=== PATIENT | female | born 1995 | race American Indian/Alaskan Native ===

== ENCOUNTER 2017-04-23 13:12 | Emergency (ER) | payer MEDICAID, OTHER ==
--- NOTE | 2017-04-23 13:21 | EDM.PDOC ---
ED HPI GENERAL MEDICAL PROBLEM - General Chief Complaint: Bite:Animal, Insect Stated Complaint: [id number] BIT BY SOMETHING ON LEG Time Seen by Provider: 04/23/17 13:19 Source of Information: Reports: Patient, RN, RN Notes Reviewed History Limitations: Reports: No Limitations - History of Present Illness INITIAL COMMENTS - FREE TEXT/NARRATIVE: Arrives from home by POV with c/o being bit on the right upper leg by something on the 21 of April. Pt states that she was very drunk and didn't know what bit her, but it didn't itch as much as a mosquito bite. Now she has a slightly red bump with a bulls eye rash around it. She denies fevers, chills, joint swelling , or pain. Onset: Unknown/Unsure Onset Date: 04/21/17 Location: Reports: Lower Extremity, Right Quality: Reports: Other (itches) Severity: Mild Improves with: Reports: None Worsens with: Reports: None Associated Symptoms: Reports: No Other Symptoms Right Leg Pain Score (Numeric/FACES): 2 - Related Data Allergies Allergy/AdvReac Type Severity Reaction Status Date / Time bee venom protein (honey bee) Allergy Swelling Verified 04/23/17 13:29 bee Allergy Swelling Uncoded 04/23/17 13:29 Home Meds: Home Meds . 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 Musculoskeletal History: Reports: None Neurological History: Reports: Migraines Psychiatric History: Reports: Anxiety Endocrine/Metabolic History: Reports: None Hematologic History: Reports: None Immunologic History: Reports: None Oncologic (Cancer) History: Reports: None Dermatologic History: Reports: None - Infectious Disease History Infectious Disease History: Reports: Chicken Pox, Shingles - Past Surgical History HEENT Surgical History: Reports: Myringotomy w Tube(s), Tonsillectomy Social & Family History - Family History Family Medical History: Noncontributory - Tobacco Use Smoking Status *Q: Current Every Day Smoker Years of Tobacco use: 3 Packs/Tins Daily: 0.3 Used Tobacco, but Quit: No Second Hand Smoke Exposure: Yes - Alcohol Use Days Per Week of Alcohol Use: 0 - Recreational Drug Use Recreational Drug Use: No - Living Situation & Occupation Living situation: Reports: with Family Review of Systems - Review of Systems Review Of Systems: ROS reveals no pertinent complaints other than HPI. ED EXAM, GENERAL - Physical Exam Exam: See Below Exam Limited By: No Limitations General Appearance: Alert, WD/WN, No Apparent Distress Throat/Mouth: Normal Inspection Head: Atraumatic, Normocephalic Neck: Normal Inspection, Supple, Non-Tender, Full Range of Motion. No: Lymphadenopathy (L), Lymphadenopathy (R) Respiratory/Chest: No Respiratory Distress Cardiovascular: Regular Rate, Rhythm Back Exam: Normal Inspection Extremities: Normal Range of Motion, Non-Tender, No Pedal Edema, Normal Capillary Refill. No: Leg Pain, Increased Warmth Neurological: Alert, Oriented, CN II-XII Intact, Normal Cognition, Normal Gait, No Motor/Sensory Deficits Psychiatric: Normal Affect, Normal Mood Skin Exam: Warm, Dry, Intact, Other (Rt medial mid-thigh with a 5cm diameter bulls eye rash with a 1cm central round pink nodule) Course - Vital Signs Last Recorded V/S: Last Vital Signs Temp 36.6 C 04/23/17 13:17 Pulse 84 04/23/17 13:17 Resp 20 04/23/17 13:17 BP 113/63 04/23/17 13:17 Pulse Ox 100 04/23/17 13:17 Departure - Departure Time of Disposition: 14:07 Disposition: Home, Self-Care 01 Condition: Good Clinical Impression: Tick bite of right thigh with local reaction Qualifiers: Encounter type: initial encounter Qualified Code(s): S70.361A - Insect bite ( nonvenomous), right thigh, initial encounter - Discharge Information Instructions: Insect Bite, [id number], Lyme Disease Forms: ED Department Discharge Additional Instructions: Rx: Doxycycline 100mg: Take one tablet by mouth twice a day for 14 days to prevent Lyme disease. Use over the counter Benadryl 25mg: One tablet by mouth every 6 hours as needed for itching. *Do not drive for 8 hours after taking benadryl. Follow up in clinic if not improved in 7 days. If you develop fevers, joint pain or swelling, or a rash any time in the next 6 weeks follow up with your primary doctor or clinic for a Lyme Disease blood test.
== END 2017-04-23 14:21 | disposition home or self-care (01) ==
LOC: DL.ED 13:12
CPT/HCPCS: 99282

== ENCOUNTER 2017-07-31 12:55 | Emergency (ER) | payer SELFPAY ==
[2017-07-31 13:33] VITALS: BP 112/63
--- NOTE | 2017-07-31 13:44 | EDM.PDOC ---
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 Stated Complaint: 11 WKS PG, SPOTTING ALL MORNING Time Seen by Provider: 07/31/17 13:37 Source of Information: Reports: Patient, Family () History Limitations: Reports: No Limitations - History of Present Illness INITIAL COMMENTS - FREE TEXT/NARRATIVE: 22 yo [place] Female 11 weeks w/ c/o spotting w/ no abdomen pain Onset: Today Onset Date: 07/31/17 Onset Time: 09:00 Duration: Hour(s): Location: Reports: Pelvis Severity: Mild Improves with: Reports: None Worsens with: Reports: None Associated Symptoms: Reports: No Other Symptoms - Related Data Allergies Allergy/AdvReac Type Severity Reaction Status Date / Time bee venom protein (honey bee) Allergy Swelling Verified 04/23/17 13:29 bee Allergy Swelling Uncoded 04/23/17 13:29 Home Meds: Home Meds Vits #93/Iron Fum/FA [ Formula Tablet] 1 tab PO DAILY 07/31/17 [History] Past Medical History Cardiovascular History: Reports: None Respiratory History: Reports: None Gastrointestinal History: Reports: Other (See Below) Other Gastrointestinal History: umbilical hernia Genitourinary History: Reports: UTI, Recurrent 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 Musculoskeletal History: Reports: None Neurological History: Reports: Migraines Psychiatric History: Reports: Anxiety Endocrine/Metabolic History: Reports: None Hematologic History: Reports: None Immunologic History: Reports: None Oncologic (Cancer) History: Reports: None Dermatologic History: Reports: None - Infectious Disease History Infectious Disease History: Reports: Chicken Pox, Shingles - Past Surgical History HEENT Surgical History: Reports: Myringotomy w Tube(s), Tonsillectomy Social & Family History - Family History Family Medical History: Noncontributory - Tobacco Use Smoking Status *Q: Current Every Day Smoker Years of Tobacco use: 3 Packs/Tins Daily: 0.3 Used Tobacco, but Quit: No Second Hand Smoke Exposure: Yes - Caffeine Use Caffeine Use: Reports: Coffee, Soda, Tea - Alcohol Use Days Per Week of Alcohol Use: 0 - Recreational Drug Use Recreational Drug Use: No - Living Situation & Occupation Living situation: Reports: with Family ED ROS GENERAL - Review of Systems Review Of Systems: See Below Constitutional: Reports: No Symptoms HEENT: Reports: No Symptoms Respiratory: Reports: No Symptoms Cardiovascular: Reports: No Symptoms Endocrine: Reports: No Symptoms GI/Abdominal: Reports: No Symptoms : Reports: Other (dark blood on pany liner) Musculoskeletal: Reports: No Symptoms Skin: Reports: No Symptoms Neurological: Reports: No Symptoms Psychiatric: Reports: No Symptoms Hematologic/Lymphatic: Reports: No Symptoms Immunologic: Reports: No Symptoms ED EXAM - Physical Exam Exam: See Below Exam Limited By: No Limitations General Appearance: Alert, No Apparent Distress Eye Exam: Bilateral Eye: PERRL Ears: Normal External Exam Nose: Normal Inspection Throat/Mouth: Normal Inspection, Normal Lips Head: Atraumatic Neck: Normal Inspection Respiratory/Chest: No Respiratory Distress, Lungs Clear Cardiovascular: Normal Peripheral Pulses, Regular Rate, Rhythm GI/Abdominal Exam: Normal Bowel Sounds Rectal Exam: Normal Exam (Female) Exam: Normal Bimanual Exam, Normal Speculum Exam, Other (Cervical Os closed and small amount of dark blood w/ mucus plug against cervix No blood in vaginal vault and no active bleeding) Back Exam: Normal Inspection Extremities: Normal Inspection Neurological: Alert, Oriented, CN II-XII Intact Psychiatric: Normal Affect, Normal Mood Skin Exam: Dry Lymphatic: No Adenopathy ED DELIVERY OF - General Source: Reports: Patient Course - Vital Signs Last Recorded V/S: Last Vital Signs Temp 36.2 C 07/31/17 13:32 Pulse 90 07/31/17 13:32 Resp 16 07/31/17 13:32 BP 112/63 07/31/17 13:32 Pulse Ox 100 07/31/17 13:32 - Orders/Labs/Meds Orders: Active Orders 24 hr Category Date Time Status HCG QUANTITATIVE,SERUM [CHEM] Stat Lab 07/31/17 13:50 Received Labs: Laboratory Tests 07/31/17 Range/Units 13:50 Urine Color Yellow (YELLOW) Urine Appearance Slightly cloudy (CLEAR) Urine pH 7.5 (5.0-9.0) Ur Specific [place] 1.015 (1.005-1.030) Urine Protein Negative (NEGATIVE) Urine Glucose (UA) Negative (NEGATIVE) Urine Ketones Negative (NEGATIVE) Urine Occult Blood Moderate H (NEGATIVE) Urine Nitrite Negative (NEGATIVE) Urine Bilirubin Negative (NEGATIVE) Urine Urobilinogen 0.2 (0.2-1.0) mg/dL Ur Leukocyte Esterase Small H (NEGATIVE) Urine RBC 5-10 H /HPF Urine WBC 0-5 (0-5/HPF) /HPF Ur Epithelial Cells Occasional /HPF Urine Bacteria Few (0-FEW/HPF) /HPF Departure - Departure Time of Disposition: 14:48 Disposition: Home, Self-Care 01 Condition: Good Clinical Impression: Vaginitis affecting in first trimester, antepartum - Discharge Information Forms: ED Department Discharge Additional Instructions: Rest Nothing in Vagina F/U w/ PCP - My Orders Last 24 Hours: My Active Orders 07/31/17 13:50 HCG QUANTITATIVE,SERUM [CHEM] Stat - Assessment/Plan Last 24 Hours: My Active Orders 07/31/17 13:50 HCG QUANTITATIVE,SERUM [CHEM] Stat
== END 2017-07-31 15:09 | disposition home or self-care (01) ==
LOC: DL.ED 12:55
DX: O23.591 Infection of other part of genital tract in pregnancy, first trimester (principal); O99.331 Smoking (tobacco) complicating pregnancy, first trimester; F17.210 Nicotine dependence, cigarettes, uncomplicated; Z87.440 Personal history of urinary (tract) infections; Z91.030 Bee allergy status; Z3A.11 11 weeks gestation of pregnancy
CPT/HCPCS: 36415; 81001; 84702; 99284

== ENCOUNTER 2017-08-03 16:28 | Emergency (ER) | payer SELFPAY ==
[2017-08-03 17:00] VITALS: BP 119/65
--- NOTE | 2017-08-03 17:12 | EDM.PDOC ---
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 She states she was seen in ER a few days ago, as well as at [facility] clinic today. She states today she had a "Pap smear and some swabs" done. She admits to intermittent cramping after this. She states she was told she had a UTI, but has not been taking anything for it. She denies fever and chills. Patient states she is approximately 11 weeks, 5 days . 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 report Musculoskeletal History: Reports: None Neurological History: Reports: Migraines Psychiatric History: Reports: Anxiety Endocrine/Metabolic History: Reports: None Hematologic History: Reports: None Immunologic History: Reports: None Oncologic (Cancer) History: Reports: None Dermatologic History: Reports: None - Infectious Disease History Infectious Disease History: Reports: Chicken Pox, Shingles - Past Surgical History Head Surgeries/Procedures: Reports: None HEENT Surgical History: Reports: Myringotomy w Tube(s), Tonsillectomy <Soumya Richey - Last Filed: 08/03/17 19:15> Social & Family History - Family History Family Medical History: Noncontributory - Tobacco Use Smoking Status *Q: Current Every Day Smoker Years of Tobacco use: 3 Packs/Tins Daily: 0.3 Used Tobacco, but Quit: No Second Hand Smoke Exposure: Yes - Caffeine Use Caffeine Use: Reports: Coffee, Soda, Tea - Alcohol Use Days Per Week of Alcohol Use: 0 - Recreational Drug Use Recreational Drug Use: No - Living Situation & Occupation Living situation: Reports: with Family <Soumya Richey - Last Filed: 08/03/17 19:15> ED ROS GENERAL - Review of Systems Review Of Systems: ROS reveals no pertinent complaints other than HPI. <Soumya Richey - Last Filed: 08/03/17 19:15> ED EXAM - Physical Exam Exam: See Below Exam Limited By: No Limitations General Appearance: Alert, WD/WN, No Apparent Distress Eye Exam: Bilateral Eye: Normal Inspection Ears: Normal External Exam, Hearing Grossly Normal Nose: Normal Inspection Throat/Mouth: Normal Inspection, Normal Lips, Normal Teeth, Normal Gums, Normal Oropharynx, Normal Voice, No Airway Compromise Head: Atraumatic, Normocephalic Neck: Normal Inspection, Full Range of Motion Respiratory/Chest: No Respiratory Distress, Lungs Clear, Normal Breath Sounds, No Accessory Muscle Use, Chest Non-Tender Cardiovascular: Normal Peripheral Pulses, Regular Rate, Rhythm, No Edema, No Gallop, No JVD, No Murmur, No Rub GI/Abdominal Exam: Normal Bowel Sounds, Soft, Non-Tender Rectal Exam: Deferred Back Exam: Normal Inspection, Full Range of Motion Extremities: Normal Inspection, Normal Range of Motion, Non-Tender, No Pedal Edema, Normal Capillary Refill Neurological: Alert, Oriented, Normal Cognition, Normal Gait, No Motor/Sensory Deficits Psychiatric: Normal Affect, Normal Mood Skin Exam: Warm, Dry, Intact, Normal Color, No Rash Lymphatic: No Adenopathy <RicheySoumya - Last Filed: 08/03/17 19:15> - Vital Signs Last Recorded V/S: Last Vital Signs Temp 98.8 F 08/03/17 16:42 Pulse 97 08/03/17 16:42 Resp 16 08/03/17 16:42 BP 119/65 10/16/17 16:42 Pulse Ox 99 08/03/17 16:42 - Orders/Labs/Meds Orders: Active Orders 24 hr Category Date Time Status OB Ltd 1 or More Fetus [US] Urgent Exams 08/03/17 17:50 Stop Req OB Ltd 1 or More Fetus [US] Urgent Exams 08/03/17 17:50 Taken OB Transvaginal [US] Urgent Exams 08/03/17 17:50 Taken Labs: Laboratory Tests 08/03/17 08/03/17 08/03/17 Range/Units 17:02 17:02 17:02 WBC 9.7 (5.0-10.0) 10^3/uL RBC 4.06 L (4.2-5.4) 10^6/uL Hgb 13.0 D (12.0-16.0) g/dL Hct 37.2 (37.0-47.0) % MCV 91.6 (80-100) fL MCH 32.0 (27.0-34.0) pg MCHC 34.9 (33.0-35.0) g/dL Plt Count 266 (150-450) 10^3/uL Neut % (Auto) 68.1 (42.2-75.2) % Lymph % (Auto) 20.8 (20.5-50.1) % [place] % (Auto) 7.6 (2-8) % Eos % (Auto) 3.3 H (1.0-3.0) % Baso % (Auto) 0.2 (0.0-1.0) % Sodium 137 (135-145) mmol/L Potassium 3.4 L (3.6-5.0) mmol/L Chloride 104 (101-111) mmol/L Carbon Dioxide 24.0 (21.0-31.0) mmol/L Anion Gap 12.4 BUN 11 (7-18) mg/dL Creatinine 0.5 L (0.6-1.3) mg/dL Est Cr Clr Drug Dosing 166.62 mL/min Estimated GFR (MDRD) > 60 BUN/Creatinine Ratio 22.00 Glucose 101 (74-105) mg/dL Calcium 9.6 (8.4-10.2) mg/dl Total Bilirubin 0.8 (0.2-1.0) mg/dL AST 21 (10-42) IU/L ALT 15 (10-60) IU/L Alkaline Phosphatase 55 (42-121) IU/L Total Protein 7.4 (6.7-8.2) g/dl Albumin 4.7 (3.2-5.5) g/dl Globulin 2.7 Albumin/Globulin Ratio 1.74 HCG, Quant > 1371 H (0-25) mIU/ml Beta HCG, Quant 9292 mIU/ml Urine Color (YELLOW) Urine Appearance (CLEAR) Urine pH (5.0-9.0) Ur Specific [place] (1.005-1.030) Urine Protein (NEGATIVE) Urine Glucose (UA) (NEGATIVE) Urine Ketones (NEGATIVE) Urine Occult Blood (NEGATIVE) Urine Nitrite (NEGATIVE) Urine Bilirubin (NEGATIVE) Urine Urobilinogen (0.2-1.0) mg/dL Ur Leukocyte Esterase (NEGATIVE) Urine RBC /HPF Urine WBC (0-5/HPF) /HPF Ur Epithelial Cells /HPF Urine Bacteria (0-FEW/HPF) /HPF Urine Mucus /LPF Urine Opiates Screen (NEGATIVE) Ur Oxycodone Screen (NEGATIVE) Urine Methadone Screen (NEGATIVE) Ur Barbiturates Screen (NEGATIVE) U Tricyclic Antidepress (NEGATIVE) Ur Phencyclidine Scrn (NEGATIVE) Ur Amphetamine Screen (NEGATIVE) U Methamphetamines Scrn (NEGATIVE) Urine MDMA Screen (NEGATIVE) U Benzodiazepines Scrn (NEGATIVE) Urine Cocaine Screen (NEGATIVE) U Marijuana (THC) Screen (NEGATIVE) 08/03/17 08/03/17 Range/Units 17:07 17:07 WBC (5.0-10.0) 10^3/uL RBC (4.2-5.4) 10^6/uL Hgb (12.0-16.0) g/dL Hct (37.0-47.0) % MCV (80-100) fL MCH (27.0-34.0) pg MCHC (33.0-35.0) g/dL Plt Count (150-450) 10^3/uL Neut % (Auto) (42.2-75.2) % Lymph % (Auto) (20.5-50.1) % [place] % (Auto) (2-8) % Eos % (Auto) (1.0-3.0) % Baso % (Auto) (0.0-1.0) % Sodium (135-145) mmol/L Potassium (3.6-5.0) mmol/L Chloride (101-111) mmol/L Carbon Dioxide (21.0-31.0) mmol/L Anion Gap BUN (7-18) mg/dL Creatinine (0.6-1.3) mg/dL Est Cr Clr Drug Dosing mL/min Estimated GFR (MDRD) BUN/Creatinine Ratio Glucose (74-105) mg/dL Calcium (8.4-10.2) mg/dl Total Bilirubin (0.2-1.0) mg/dL AST (10-42) IU/L ALT (10-60) IU/L Alkaline Phosphatase (42-121) IU/L Total Protein (6.7-8.2) g/dl Albumin (3.2-5.5) g/dl Globulin Albumin/Globulin Ratio HCG, Quant (0-25) mIU/ml Beta HCG, Quant mIU/ml Urine Color Yellow (YELLOW) Urine Appearance Slightly cloudy (CLEAR) Urine pH 6.0 (5.0-9.0) Ur Specific [place] 1.010 (1.005-1.030) Urine Protein Negative (NEGATIVE) Urine Glucose (UA) Negative (NEGATIVE) Urine Ketones Negative (NEGATIVE) Urine Occult Blood Moderate H (NEGATIVE) Urine Nitrite Negative (NEGATIVE) Urine Bilirubin Negative (NEGATIVE) Urine Urobilinogen 0.2 (0.2-1.0) mg/dL Ur Leukocyte Esterase Trace H (NEGATIVE) Urine RBC 5-10 H /HPF Urine WBC 5-10 H (0-5/HPF) /HPF Ur Epithelial Cells Rare /HPF Urine Bacteria Few (0-FEW/HPF) /HPF Urine Mucus Rare /LPF Urine Opiates Screen Negative (NEGATIVE) Ur Oxycodone Screen Negative (NEGATIVE) Urine Methadone Screen Negative (NEGATIVE) Ur Barbiturates Screen Negative (NEGATIVE) U Tricyclic Antidepress Negative (NEGATIVE) Ur Phencyclidine Scrn Negative (NEGATIVE) Ur Amphetamine Screen Negative (NEGATIVE) U Methamphetamines Scrn Negative (NEGATIVE) Urine MDMA Screen Negative (NEGATIVE) U Benzodiazepines Scrn Negative (NEGATIVE) Urine Cocaine Screen Negative (NEGATIVE) U Marijuana (THC) Screen Negative (NEGATIVE) Departure <Soumya Richey - Last Filed: 08/03/17 19:15> - Departure Time of Disposition: 19:43 Condition: Fair <Katarina Cobian - Last Filed: 08/03/17 19:49> - Departure Disposition: Home, Self-Care 01 Clinical Impression: Threatened , Intrauterine , Absent heart tones - Discharge Information Instructions: Threatened Miscarriage Forms: ED Department Discharge Additional Instructions: rest nothing in vagina while bleeding follow up in clinic in 1-2 days for serial HCG levels ( Today Beta HCG 9292. HCG Quant 1371) Ultra sound gestational age 7 weeks 2 days)
[2017-08-03 17:35] LABS: CHLORIDE,CL 104 mmol/L (101-111); SODIUM,NA 137 mmol/L (135-145)
== END 2017-08-03 20:04 | disposition home or self-care (01) ==
LOC: DL.ED 16:28
DX: O20.0 Threatened abortion (principal); O76 Abnormality in fetal heart rate and rhythm complicating labor and delivery; O99.331 Smoking (tobacco) complicating pregnancy, first trimester; F17.200 Nicotine dependence, unspecified, uncomplicated; Z3A.11 11 weeks gestation of pregnancy; Z91.030 Bee allergy status
CPT/HCPCS: 36415; 76815; 76817; 80053; 80305; 81001; 84702; 85025; 99284

== ENCOUNTER 2020-01-30 23:40 | Emergency (ER) | payer MEDICAID ==
[2020-01-31 00:05] VITALS: BP 133/87; PULSE 84
--- NOTE | 2020-01-31 00:08 | EDM.PDOC ---
ED HPI GENERAL MEDICAL PROBLEM - General Chief Complaint: Abdominal Pain Stated Complaint: STOMACH PAIN Time Seen by Provider: 01/31/20 00:08 Source of Information: Reports: Patient, RN, RN Notes Reviewed History Limitations: Reports: No Limitations - History of Present Illness INITIAL COMMENTS - FREE TEXT/NARRATIVE: patient presents to ER with complaint of left lower quadrant pain that began abruptly about 10:30 PM tonight while having intercourse. Patient states she has had ovarian cysts in the past with the last one being about one year ago. Patient denies any recent fever, chills, nausea, vomiting, diarrhea, chest pain , shortness of breath, urinary symptoms such as frequency, urgency, burning with urination. Patient states she has had one in the past which she miscarried. She states she has no living children. 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 Patient also declines Tylenol at this time. Onset: Today, Sudden Left Lower Abdomen Pain Score (Numeric/FACES): 6 - Related Data Allergies Allergy/AdvReac Type Severity Reaction Status Date / Time bee venom protein (honey bee) Allergy Swelling Verified 04/23/17 13:29 bee Allergy Swelling Uncoded 04/23/17 13:29 Home Meds: Home Meds Vits #93/Iron Fum/FA [ Formula Tablet] 1 tab PO DAILY 07/31/17 [History] Past Medical History Cardiovascular History: Reports: None Respiratory History: Reports: None Gastrointestinal History: Reports: Other (See Below) Other Gastrointestinal History: umbilical hernia Genitourinary History: Reports: UTI, Recurrent LEARNING AND DEVELOPMENT ASSOCIATE History: Reports: None, Other LEARNING AND DEVELOPMENT ASSOCIATE History: 11 weeks per pt. report Musculoskeletal History: Reports: None Neurological History: Reports: Migraines Psychiatric History: Reports: Anxiety Endocrine/Metabolic History: Reports: None Hematologic History: Reports: None Immunologic History: Reports: None Oncologic (Cancer) History: Reports: None Dermatologic History: Reports: None - Infectious Disease History Infectious Disease History: Reports: Chicken Pox, Shingles - Past Surgical History Head Surgeries/Procedures: Reports: None HEENT Surgical History: Reports: Myringotomy w Tube(s), Tonsillectomy Social & Family History - Family History Family Medical History: Noncontributory - Tobacco Use Smoking Status *Q: Current Every Day Smoker Years of Tobacco use: 5 Packs/Tins Daily: 0.2 - Caffeine Use Caffeine Use: Reports: Soda - Alcohol Use Date of Last Drink: 12/02/19 - Recreational Drug Use Recreational Drug Use: Yes Drug Use in Last 12 Months: No - Living Situation & Occupation Living situation: Reports: with Family ED ROS GENERAL - Review of Systems Review Of Systems: Comprehensive ROS is negative, except as noted in HPI. ED EXAM, GI/ABD - Physical Exam Exam: See Below Exam Limited By: No Limitations General Appearance: Alert, WD/WN, No Apparent Distress Eyes: Bilateral: Normal Appearance, EOMI Ears: Normal External Exam, Hearing Grossly Normal Nose: Normal Inspection Throat/Mouth: Normal Inspection, Normal Voice, No Airway Compromise Head: Atraumatic, Normocephalic Neck: Normal Inspection, Supple, Non-Tender, Full Range of Motion Respiratory/Chest: No Respiratory Distress, Lungs Clear, Normal Breath Sounds, No Accessory Muscle Use, Chest Non-Tender Cardiovascular: Normal Peripheral Pulses, Regular Rate, Rhythm, No Edema, No Gallop, No JVD, No Murmur, No Rub GI/Abdominal Exam: Normal Bowel Sounds, Soft, Tender (LLQ) (Female) Exam: Deferred Rectal (Female) Exam: Deferred Back Exam: Normal Inspection, Full Range of Motion, NT Extremities: Normal Inspection, Normal Range of Motion, Non-Tender, Normal Capillary Refill, No Pedal Edema Neurological: Alert, Oriented, CN II-XII Intact, Normal Cognition, Normal Gait, Normal Reflexes, No Motor/Sensory Deficits Psychiatric: Normal Affect, Normal Mood Skin Exam: Warm, Dry, Intact, Normal Color, No Rash Lymphatic: No Adenopathy Course - Vital Signs Last Recorded V/S: Last Vital Signs Temp 97.4 F 01/30/20 23:44 Pulse 84 01/30/20 23:44 Resp 19 01/30/20 23:44 BP 133/87 01/30/20 23:44 Pulse Ox 98 01/30/20 23:44 - Orders/Labs/Meds Orders: Active Orders 24 hr Category Date Time Status CULTURE URINE [RM] Stat Lab 01/30/20 23:44 Received Nitrofurantoin [place]/Macrocryst [Macrobid] Med 01/31/20 00:41 Once 100 mg PO ONETIME ONE Labs: Laboratory Tests 01/30/20 01/30/20 01/30/20 Range/Units 23:44 23:44 23:44 WBC (5.0-10.0) 10^3/uL RBC (4.2-5.4) 10^6/uL Hgb (12.0-16.0) g/dL Hct (37.0-47.0) % MCV (80-100) fL MCH (27.0-34.0) pg MCHC (33.0-35.0) g/dL Plt Count (150-450) 10^3/uL Neut % (Auto) (42.2-75.2) % Lymph % (Auto) (20.5-50.1) % [place] % (Auto) (2-8) % Eos % (Auto) (1.0-3.0) % Baso % (Auto) (0.0-1.0) % Sodium (136-145) mmol/L Potassium (3.5-5.1) mmol/L Chloride (98-107) mmol/L Carbon Dioxide (21-32) mmol/L Anion Gap (7-13) mEq/L BUN (7-18) mg/dL Creatinine (0.55-1.02) mg/dL Est Cr Clr Drug Dosing mL/min Estimated GFR (MDRD) BUN/Creatinine Ratio (No establ ref range) Glucose (74-99) mg/dL Calcium (8.5-10.1) mg/dL Total Bilirubin (0.2-1.0) mg/dL AST (15-37) U/L ALT (14-59) U/L Alkaline Phosphatase (46-116) U/L Total Protein (6.4-8.2) g/dL Albumin (3.4-5.0) g/dL Globulin Albumin/Globulin Ratio Urine Color Yellow (YELLOW) Urine Appearance Turbid (CLEAR) Urine pH 8.5 (5.0-9.0) Ur Specific [place] 1.020 (1.005-1.030) Urine Protein Trace H (NEGATIVE) Urine Glucose (UA) Negative (NEGATIVE) Urine Ketones Negative (NEGATIVE) Urine Occult Blood Negative (NEGATIVE) Urine Nitrite Negative (NEGATIVE) Urine Bilirubin Negative (NEGATIVE) Urine Urobilinogen 2.0 H (0.2-1.0) mg/dL Ur Leukocyte Esterase Moderate H (NEGATIVE) Urine RBC 0-5 /HPF Urine WBC 10-20 H (0-5/HPF) /HPF Ur Epithelial Cells Moderate H (NOT SEEN) /HPF Amorphous Sediment Many H (NOT SEEN) /HPF Urine Bacteria Moderate H (0-FEW/HPF) /HPF Urine Mucus Few H (NOT SEEN) /LPF Urine HCG, Qual Negative Urine Opiates Screen Negative (NEGATIVE) Ur Oxycodone Screen Negative (NEGATIVE) Urine Methadone Screen Negative (NEGATIVE) Ur Barbiturates Screen Negative (NEGATIVE) U Tricyclic Antidepress Negative (NEGATIVE) Ur Phencyclidine Scrn Negative (NEGATIVE) Ur Amphetamine Screen Negative (NEGATIVE) U Methamphetamines Scrn Negative (NEGATIVE) Urine MDMA Screen Negative (NEGATIVE) U Benzodiazepines Scrn Negative (NEGATIVE) Urine Cocaine Screen Negative (NEGATIVE) U Marijuana (THC) Screen Negative (NEGATIVE) 01/30/20 01/30/20 Range/Units 23:57 23:57 WBC 11.5 H (5.0-10.0) 10^3/uL RBC 4.61 (4.2-5.4) 10^6/uL Hgb 14.4 (12.0-16.0) g/dL Hct 42.1 (37.0-47.0) % MCV 91.3 (80-100) fL MCH 31.2 (27.0-34.0) pg MCHC 34.2 (33.0-35.0) g/dL Plt Count 360 D (150-450) 10^3/uL Neut % (Auto) 55.3 (42.2-75.2) % Lymph % (Auto) 31.5 (20.5-50.1) % [place] % (Auto) 8.5 H (2-8) % Eos % (Auto) 4.4 H (1.0-3.0) % Baso % (Auto) 0.3 (0.0-1.0) % Sodium 140 (136-145) mmol/L Potassium 3.8 (3.5-5.1) mmol/L Chloride 103 (98-107) mmol/L Carbon Dioxide 29 (21-32) mmol/L Anion Gap 11.8 (7-13) mEq/L BUN 14 (7-18) mg/dL Creatinine 0.59 (0.55-1.02) mg/dL Est Cr Clr Drug Dosing 144.21 mL/min Estimated GFR (MDRD) > 60 BUN/Creatinine Ratio 23.7 (No establ ref range) Glucose 90 (74-99) mg/dL Calcium 8.9 (8.5-10.1) mg/dL Total Bilirubin 0.2 (0.2-1.0) mg/dL AST 13 L (15-37) U/L ALT 23 (14-59) U/L Alkaline Phosphatase 97 (46-116) U/L Total Protein 7.5 (6.4-8.2) g/dL Albumin 4.2 (3.4-5.0) g/dL Globulin 3.3 Albumin/Globulin Ratio 1.3 Urine Color (YELLOW) Urine Appearance (CLEAR) Urine pH (5.0-9.0) Ur Specific [place] (1.005-1.030) Urine Protein (NEGATIVE) Urine Glucose (UA) (NEGATIVE) Urine Ketones (NEGATIVE) Urine Occult Blood (NEGATIVE) Urine Nitrite (NEGATIVE) Urine Bilirubin (NEGATIVE) Urine Urobilinogen (0.2-1.0) mg/dL Ur Leukocyte Esterase (NEGATIVE) Urine RBC /HPF Urine WBC (0-5/HPF) /HPF Ur Epithelial Cells (NOT SEEN) /HPF Amorphous Sediment (NOT SEEN) /HPF Urine Bacteria (0-FEW/HPF) /HPF Urine Mucus (NOT SEEN) /LPF Urine HCG, Qual Urine Opiates Screen (NEGATIVE) Ur Oxycodone Screen (NEGATIVE) Urine Methadone Screen (NEGATIVE) Ur Barbiturates Screen (NEGATIVE) U Tricyclic Antidepress (NEGATIVE) Ur Phencyclidine Scrn (NEGATIVE) Ur Amphetamine Screen (NEGATIVE) U Methamphetamines Scrn (NEGATIVE) Urine MDMA Screen (NEGATIVE) U Benzodiazepines Scrn (NEGATIVE) Urine Cocaine Screen (NEGATIVE) U Marijuana (THC) Screen (NEGATIVE) Departure - Departure Time of Disposition: 00:42 Disposition: Home, Self-Care 01 Condition: Fair Clinical Impression: LLQ abdominal pain UTI (urinary tract infection) Qualifiers: Urinary tract infection type: acute cystitis Hematuria presence: with hematuria Qualified Code(s): N30.01 - Acute cystitis with hematuria - Discharge Information *PRESCRIPTION DRUG MONITORING PROGRAM REVIEWED*: No *COPY OF PRESCRIPTION DRUG MONITORING REPORT IN PATIENT FELIX: No Instructions: Abdominal Pain, Adult, [id number], Urinary Tract Infection, Adult, [id number] Forms: ED Department Discharge Additional Instructions: Drink plenty of water May use Tylenol as directed for pain RX: Macrobid Follow up with your primary care facility May use heat to the abdomen as tolerated Sepsis Event Note - Evaluation Sepsis Screening Result: No Definite Risk - Focused Exam Vital Signs: Vital Signs Temp Pulse Resp BP Pulse Ox 01/30/20 23:44 97.4 F 84 19 133/87 98 Date Exam was Performed: 01/31/20 Time Exam was Performed: 00:42 - My Orders Last 24 Hours: My Active Orders 01/30/20 23:44 CULTURE URINE [RM] Stat 01/31/20 00:41 Nitrofurantoin [place]/Macrocryst [Macrobid] 100 mg PO ONETIME ONE - Assessment/Plan Last 24 Hours: My Active Orders 01/30/20 23:44 CULTURE URINE [RM] Stat 01/31/20 00:41 Nitrofurantoin [place]/Macrocryst [Macrobid] 100 mg PO ONETIME ONE
[2020-01-31 00:25] LABS: ANION GAP 11.8 mEq/L (7-13); CHLORIDE,CL 103 mmol/L (98-107); SODIUM,NA 140 mmol/L (136-145)
[2020-01-31] MEDS ORDERED: Nitrofurantoin Monohydrate/Macrocrystalline 100 MG Cap PO ONE (00:41)
== END 2020-01-31 00:48 | disposition home or self-care (01) ==
LOC: DL.ED 23:40
DX: O23.11 Infections of bladder in pregnancy, first trimester (principal); O99.331 Smoking (tobacco) complicating pregnancy, first trimester; F17.210 Nicotine dependence, cigarettes, uncomplicated; Z3A.11 11 weeks gestation of pregnancy; Z91.030 Bee allergy status
CPT/HCPCS: 36415; 80053; 80305; 81001; 81025; 85025; 87086; 99284; A9270

== ENCOUNTER 2020-04-12 10:35 | Emergency (ER) | payer MEDICAID ==
[2020-04-12 10:58] VITALS: BP 117/82; PULSE 80
[2020-04-12] MEDS ORDERED: Phenazopyridine 95 MG Tab PO ONE (11:40)
[2020-04-12] MEDS ORDERED: Cephalexin 500 MG Cap PO ONE (11:46)
--- NOTE | 2020-04-12 11:55 | EDM.PDOC ---
ED HPI GENERAL MEDICAL PROBLEM - General Chief Complaint: Genitourinary Problem Stated Complaint: possible UTI reported by patient Time Seen by Provider: 04/12/20 11:00 Source of Information: Reports: Patient History Limitations: Reports: No Limitations - History of Present Illness INITIAL COMMENTS - FREE TEXT/NARRATIVE: Patient comes to the emergency department today with complaints of blood in her urine and urinary frequency. Starting this morning she rather suddenly developed urinary frequency dysuria she also noted some blood in her urine. She has had a urinary tract infection in the past it feels just like it although she is never had blood in her urine. She has no abdominal pain. No fever no chills. No nausea no vomiting. No flank pain. No other vaginal discharge pain or dyspareunia. - Related Data Allergies Allergy/AdvReac Type Severity Reaction Status Date / Time bee venom protein (honey bee) Allergy Swelling Verified 04/12/20 10:59 bee Allergy Swelling Uncoded 04/12/20 10:59 Home Meds: Home Meds . [No Known Home Meds] 04/12/20 [History] Past Medical History Cardiovascular History: Reports: None Respiratory History: Reports: None Gastrointestinal History: Reports: Other (See Below) Other Gastrointestinal History: umbilical hernia Genitourinary History: Reports: UTI, Recurrent DIPPER AND BAKER History: Reports: None, Other DIPPER AND BAKER History: 11 weeks per pt. report Musculoskeletal History: Reports: None Neurological History: Reports: Migraines Psychiatric History: Reports: Anxiety Endocrine/Metabolic History: Reports: None Hematologic History: Reports: None Immunologic History: Reports: None Oncologic (Cancer) History: Reports: None Dermatologic History: Reports: None - Infectious Disease History Infectious Disease History: Reports: Chicken Pox, Shingles - Past Surgical History Head Surgeries/Procedures: Reports: None HEENT Surgical History: Reports: Myringotomy w Tube(s), Tonsillectomy Social & Family History - Family History Family Medical History: Noncontributory - Tobacco Use Smoking Status *Q: Current Every Day Smoker Years of Tobacco use: 8 Packs/Tins Daily: 0.5 - Caffeine Use Caffeine Use: Reports: None - Recreational Drug Use Recreational Drug Use: No - Living Situation & Occupation Living situation: Reports: with Family ED ROS GENERAL - Review of Systems Review Of Systems: Comprehensive ROS is negative, except as noted in HPI. ED EXAM, RENAL/ - Physical Exam Exam: See Below Text/Narrative:: While waiting for me to come and see her she has gone to the restroom a total of 6 times. Exam Limited By: No Limitations General Appearance: Alert, WD/WN, No Apparent Distress Respiratory/Chest: No Respiratory Distress, Lungs Clear, No Accessory Muscle Use Cardiovascular: Normal Peripheral Pulses, Regular Rate, Rhythm GI/Abdominal: Normal Bowel Sounds, Soft, Non-Tender (Female) Exam: Deferred Rectal (Female) Exam: Deferred Back Exam: Normal Inspection, Full Range of Motion. No: CVA Tenderness (L), CVA Tenderness (R) Extremities: Normal Inspection, Normal Range of Motion, Non-Tender, Normal Capillary Refill Neurological: Alert, Oriented, No Motor/Sensory Deficits Psychiatric: Normal Affect, Normal Mood Skin Exam: Warm, Dry, Intact, Normal Color, No Rash Course - Vital Signs Last Recorded V/S: Last Vital Signs Temp 97.3 F 04/12/20 10:50 Pulse 80 04/12/20 10:50 Resp 16 04/12/20 10:50 BP 117/82 04/12/20 10:50 Pulse Ox 100 04/12/20 10:50 - Orders/Labs/Meds Orders: Active Orders 24 hr Category Date Time Status CULTURE URINE [RM] Routine Lab 04/12/20 11:04 Received Labs: Laboratory Tests 04/12/20 04/12/20 Range/Units 10:50 11:04 Urine Color Yellow (YELLOW) Urine Appearance Clear (CLEAR) Urine pH 7.0 (5.0-9.0) Ur Specific [place] 1.010 (1.005-1.030) Urine Protein Negative (NEGATIVE) Urine Glucose (UA) Negative (NEGATIVE) Urine Ketones Negative (NEGATIVE) Urine Occult Blood Moderate H (NEGATIVE) Urine Nitrite Negative (NEGATIVE) Urine Bilirubin Negative (NEGATIVE) Urine Urobilinogen 0.2 (0.2-1.0) mg/dL Ur Leukocyte Esterase Small H (NEGATIVE) Urine RBC 0-5 /HPF Urine WBC 5-10 H (0-5/HPF) /HPF Ur Epithelial Cells Few (NOT SEEN) /HPF Urine Bacteria Rare (0-FEW/HPF) /HPF Urine Mucus Not seen (NOT SEEN) /LPF Urine HCG, Qual Negative Meds: Medications Discontinued Medications Generic Name Dose Route Start Last Admin Trade Name Freq PRN Reason Stop Dose Admin Cephalexin 500 mg 04/12/20 11:46 04/12/20 11:49 Keflex PO 04/12/20 11:47 500 mg ONETIME ONE Administration Phenazopyridine HCl 190 mg 04/12/20 11:40 04/12/20 11:46 Urinary Pain Relief PO 04/12/20 11:41 190 mg ONETIME ONE Administration - Re-Assessments/Exams Free Text/Narrative Re-Assessment/Exam: 04/12/20 13:57 Her urine is clearly infectious. And the amount of blood in her urine is most likely the reasoning for her large amount of frequency. We will culture her urine. Start her on Pyridium and Keflex. New or worse she is to recheck she is understanding of this and her questions are answered. Departure - Departure Time of Disposition: 11:40 Disposition: Home, Self-Care 01 Clinical Impression: UTI, Urinary tract infectious disease - Discharge Information Instructions: Urinary Tract Infection, Adult, [id number], Antibiotic Medicine, Adult Forms: ED Department Discharge Additional Instructions: Drink lots of fluids the next few days. Tylenol or Ibuprofen for any pain. Pyridium, 1 tablet three times a day for the next 3 days. RX given to the patient Cephalexin 1 tablet 4 times a day for the next 5 days. RX given to the patient. Return to the ED if new or worsening symptoms. Follow up with PCP in the next 4-6 days if not improving sooner if worse. Sepsis Event Note (ED) - Evaluation Sepsis Screening Result: No Definite Risk - Focused Exam Vital Signs: Vital Signs Temp Pulse Resp BP Pulse Ox 04/12/20 10:50 97.3 F 80 16 117/82 100 - My Orders Last 24 Hours: My Active Orders 04/12/20 11:04 CULTURE URINE [RM] Routine - Assessment/Plan Last 24 Hours: My Active Orders 04/12/20 11:04 CULTURE URINE [RM] Routine Assessment:: UTI with hematuria Plan: Drink lots of fluids the next few days. Tylenol or Ibuprofen for any pain. Pyridium, 1 tablet three times a day for the next 3 days. RX given to the patient Cephalexin 1 tablet 4 times a day for the next 5 days. RX given to the patient. Return to the ED if new or worsening symptoms. Follow up with PCP in the next 4-6 days if not improving sooner if worse.
== END 2020-04-12 12:00 | disposition home or self-care (01) ==
LOC: DL.ED 10:35
DX: N39.0 Urinary tract infection, site not specified (principal); F17.210 Nicotine dependence, cigarettes, uncomplicated; Z91.030 Bee allergy status
CPT/HCPCS: 81001; 81025; 87086; 87088; 87186; 99283; A9270

== ENCOUNTER 2020-06-22 21:06 | Emergency (ER) | payer MEDICAID ==
[2020-06-22 21:43] VITALS: BP 112/58; PULSE 80
[2020-06-22] MEDS ORDERED: Promethazine 25 MG/ML SDV IM ONE (22:07)
[2020-06-22] MEDS ORDERED: Butorphanol 2 MG/ML SDV IM ONE (22:07)
--- NOTE | 2020-06-22 22:25 | EDM.PDOC ---
ED HPI GENERAL MEDICAL PROBLEM - General Chief Complaint: Headache Stated Complaint: SEVER MIGRAINE ALL DAY,DIZZY, [id number] Time Seen by Provider: 06/22/20 22:00 Source of Information: Reports: Patient History Limitations: Reports: No Limitations - History of Present Illness INITIAL COMMENTS - FREE TEXT/NARRATIVE: patient is a 25-year-old female here today for headache. The headache started at 6:30 AM today. It has ranged in pain score from 4 out of 10 to 9 out of 10 at the worst. Patient has tried regular Aleve, Aleve migraine, Tylenol, and a hot shower to help alleviate symptoms. They have not helped today, as they have in the past. Patient reports that she is also light and sound sensitive, as well as having some blurry vision and dizziness. Pain is located in her temples, jaw, front of her head, and back of her head. She drove herself to the hospital today, and believes she can get a ride home. Patient has allergy to some types of cough syrup. She smokes one pack of cigarettes per day. She does not take any prescribed medications on daily basis. 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 [No Known Home Meds] 04/12/20 [History] Past Medical History Cardiovascular History: Reports: None Respiratory History: Reports: None Gastrointestinal History: Reports: Other (See Below) Other Gastrointestinal History: umbilical hernia Genitourinary History: Reports: UTI, Recurrent ROLLER SKATER History: Reports: Other ROLLER SKATER History: 11 weeks per pt. report Musculoskeletal History: Reports: None Neurological History: Reports: Migraines Psychiatric History: Reports: Anxiety Endocrine/Metabolic History: Reports: None Hematologic History: Reports: None Immunologic History: Reports: None Oncologic (Cancer) History: Reports: None Dermatologic History: Reports: None - Infectious Disease History Infectious Disease History: Reports: Chicken Pox, Shingles - Past Surgical History Head Surgeries/Procedures: Reports: None HEENT Surgical History: Reports: Myringotomy w Tube(s), Tonsillectomy Social & Family History - Family History Family Medical History: Noncontributory - Tobacco Use Smoking Status *Q: Current Every Day Smoker Years of Tobacco use: 7 Packs/Tins Daily: 0.4 Second Hand Smoke Exposure: Yes - Caffeine Use Caffeine Use: Reports: None - Recreational Drug Use Recreational Drug Use: No - Living Situation & Occupation Living situation: Reports: with Family ED ROS GENERAL - Review of Systems Review Of Systems: Comprehensive ROS is negative, except as noted in HPI. - Physical Exam Exam: See Below Exam Limited By: No Limitations General Appearance: Alert, No Apparent Distress Ears: Normal External Exam Nose: Normal Inspection Throat/Mouth: Normal Inspection Head Exam: Atraumatic Neck: Normal Inspection Respiratory/Chest: No Respiratory Distress, Lungs Clear, Normal Breath Sounds Cardiovascular: Normal Peripheral Pulses, Regular Rate, Rhythm GI/Abdominal: Soft (Female) Exam: Deferred Rectal (Female) Exam: Deferred Neuro Exam (Abbreviated): Alert, Oriented Back Exam: Normal Inspection Extremities: Normal Inspection, Normal Range of Motion Psychiatric: Normal Affect Skin Exam: Warm, Dry Course - Vital Signs Text/Narrative:: Patient was given an IM dose of Stadol as well as an IM dose of Phenergan. She was discharged home, with her sister driving. Last Recorded V/S: Last Vital Signs Temp 97.8 F 06/22/20 21:38 Pulse 80 06/22/20 21:38 Resp 18 06/22/20 21:38 BP 112/58 L 06/22/20 21:38 Pulse Ox 99 06/22/20 21:38 - Orders/Labs/Meds Meds: Medications Discontinued Medications Generic Name Dose Route Start Last Admin Trade Name Freq PRN Reason Stop Dose Admin Butorphanol Tartrate 2 mg 06/22/20 22:07 06/22/20 22:18 Stadol IM 06/22/20 22:08 2 mg ONETIME ONE Administration Promethazine HCl 25 mg 06/22/20 22:07 06/22/20 22:17 Phenergan IM 06/22/20 22:08 25 mg ONETIME ONE Administration - Re-Assessments/Exams Free Text/Narrative Re-Assessment/Exam: Patient was given Stadol 2 mg and Phenergan 25 mg IM with relief. Departure - Departure Time of Disposition: 22:24 Disposition: Home, Self-Care 01 Clinical Impression: Migraine - Discharge Information Instructions: Migraine Headache, [id number] Forms: ED Department Discharge Additional Instructions: Push fluids and rest follow up with PCP. Sepsis Event Note (ED) - Evaluation Sepsis Screening Result: No Definite Risk - Focused Exam Vital Signs: Vital Signs Temp Pulse Resp BP Pulse Ox 06/22/20 21:38 97.8 F 80 18 112/58 L 99
== END 2020-06-22 22:39 | disposition home or self-care (01) ==
LOC: DL.ED 21:06
DX: O99.351 Diseases of the nervous system complicating pregnancy, first trimester (principal); G43.909 Migraine, unspecified, not intractable, without status migrainosus; O99.331 Smoking (tobacco) complicating pregnancy, first trimester; F17.210 Nicotine dependence, cigarettes, uncomplicated; Z91.030 Bee allergy status; Z3A.11 11 weeks gestation of pregnancy
CPT/HCPCS: 96372; 99283; J0595; J2550

== ENCOUNTER 2020-08-19 15:59 | Emergency (ER) | payer MEDICAID, OTHER ==
[2020-08-19 16:12] VITALS: BP 128/61; PULSE 94
--- NOTE | 2020-08-19 16:14 | EDM.PDOC ---
ED HPI GENERAL MEDICAL PROBLEM - General Chief Complaint: Abdominal Pain Stated Complaint: 7 WEEKS PREG, LEFT SIDE HURTS Time Seen by Provider: 08/19/20 16:14 Source of Information: Reports: Patient, Old Records, RN, RN Notes Reviewed History Limitations: Reports: No Limitations - History of Present Illness INITIAL COMMENTS - FREE TEXT/NARRATIVE: G2, P0, sAb1, eAb0, L0 at 7 weeks gestation by dates presents to ER from home by POV with c/o LLQ abdominal pain that began around 1300HRS today. Pt states that she ate something for lunch at [employer] restaurant that did not agree with her stomach so she went out to her car but vomited once she got in the car. She twisted rapidly to stand up from vomiting and felt onset of a sudden sharp pain in LLQ. Pt rates the pain 04/27. EDC 04/03/21 Onset: Today, Sudden Duration: Constant Location: Reports: Abdomen Quality: Reports: Ache Severity: Severe Improves with: Reports: None Worsens with: Reports: None Associated Symptoms: Reports: No Other Symptoms Left Lower Abdomen Pain Score (Numeric/FACES): 3 - Related Data Allergies Allergy/AdvReac Type Severity Reaction Status Date / Time bee venom protein (honey bee) Allergy Swelling Verified 08/19/20 16:08 bee Allergy Swelling Uncoded 08/19/20 16:08 Home Meds: Home Meds Acetaminophen [Tylenol Extra Strength] 500 mg PO DAILY 08/19/20 [History] Vit No.78/Iron/Fa [Prenatabs FA] 1 tab PO DAILY 08/19/20 [History] Past Medical History Cardiovascular History: Reports: None Respiratory History: Reports: None Gastrointestinal History: Reports: Other (See Below) Other Gastrointestinal History: umbilical hernia Genitourinary History: Reports: UTI, Recurrent ENGINEER CONDUCTOR History: Reports: , Spontaneous : 2 Para: 0 Other ENGINEER CONDUCTOR History: 11 weeks per pt. report Musculoskeletal History: Reports: None Neurological History: Reports: Migraines Psychiatric History: Reports: Anxiety Endocrine/Metabolic History: Reports: None Hematologic History: Reports: None Immunologic History: Reports: None Oncologic (Cancer) History: Reports: None Dermatologic History: Reports: None - Infectious Disease History Infectious Disease History: Reports: Chicken Pox, Shingles - Past Surgical History Head Surgeries/Procedures: Reports: None HEENT Surgical History: Reports: Myringotomy w Tube(s), Tonsillectomy Social & Family History - Family History Family Medical History: Noncontributory - Caffeine Use Caffeine Use: Reports: None - Living Situation & Occupation Living situation: Reports: with Family ED ROS GENERAL - Review of Systems Review Of Systems: Comprehensive ROS is negative, except as noted in HPI. ED EXAM - Physical Exam Exam: See Below Exam Limited By: No Limitations General Appearance: Alert, WD/WN, No Apparent Distress Throat/Mouth: Normal Inspection, Normal Voice Head: Atraumatic, Normocephalic Neck: Normal Inspection Respiratory/Chest: No Respiratory Distress, Lungs Clear, Normal Breath Sounds, No Accessory Muscle Use, Chest Non-Tender Cardiovascular: Normal Peripheral Pulses, Regular Rate, Rhythm, No Edema, No Gallop, No JVD, No Murmur, No Rub GI/Abdominal Exam: Normal Bowel Sounds, Soft, No Organomegaly, No Distention, Tender (LLQ). No: Guarding, Rigid, Rebound Rectal Exam: Deferred (Female) Exam: Deferred for Placenta Previa Back Exam: Normal Inspection, Full Range of Motion. No: CVA Tenderness (L), CVA Tenderness (R), Vertebral Tenderness Extremities: Normal Inspection, Normal Range of Motion, Non-Tender, Normal Capillary Refill, No Pedal Edema Neurological: Alert, Oriented, CN II-XII Intact, Normal Cognition, Normal Gait, No Motor/Sensory Deficits Psychiatric: Normal Affect, Normal Mood Skin Exam: Warm, Dry, Intact, Normal Color, No Rash Course - Vital Signs Last Recorded V/S: Last Vital Signs Temp 98.2 F 08/19/20 16:09 Pulse 94 08/19/20 16:09 Resp 18 08/19/20 16:09 BP 128/61 08/19/20 16:09 Pulse Ox 99 08/19/20 16:09 - Orders/Labs/Meds Orders: Active Orders 24 hr Category Date Time Status OB Transvaginal [US] Stat Exams 08/19/20 17:13 Ordered ABO/RH TYPE [BBK] Stat Lab 08/19/20 18:25 Ordered CULTURE URINE [RM] Stat Lab 08/19/20 16:05 Received Labs: Laboratory Tests 08/19/20 08/19/20 08/19/20 Range/Units 16:05 16:31 16:31 WBC 10.5 H (5.0-10.0) 10^3/uL RBC 4.24 (4.2-5.4) 10^6/uL Hgb 13.3 (12.0-16.0) g/dL Hct 38.9 (37.0-47.0) % MCV 91.7 (80-100) fL MCH 31.4 (27.0-34.0) pg MCHC 34.2 (33.0-35.0) g/dL Plt Count 338 (150-450) 10^3/uL Neut % (Auto) 62.9 (42.2-75.2) % Lymph % (Auto) 24.6 (20.5-50.1) % [place] % (Auto) 7.9 (2-8) % Eos % (Auto) 4.5 H (1.0-3.0) % Baso % (Auto) 0.1 (0.0-1.0) % Sodium 139 (136-145) mmol/L Potassium 3.8 (3.5-5.1) mmol/L Chloride 102 (98-107) mmol/L Carbon Dioxide 29 (21-32) mmol/L Anion Gap 11.8 (7-13) mEq/L BUN 8 (7-18) mg/dL Creatinine 0.61 (0.55-1.02) mg/dL Est Cr Clr Drug Dosing 133.13 mL/min Estimated GFR (MDRD) > 60 BUN/Creatinine Ratio 13.1 (No establ ref range) Glucose 91 (74-99) mg/dL Calcium 9.0 (8.5-10.1) mg/dL Total Bilirubin 0.3 (0.2-1.0) mg/dL AST 18 (15-37) U/L ALT 28 (14-59) U/L Alkaline Phosphatase 79 (46-116) U/L Total Protein 7.1 (6.4-8.2) g/dL Albumin 3.8 (3.4-5.0) g/dL Globulin 3.3 Albumin/Globulin Ratio 1.2 Amylase 47 (25-115) U/L Lipase 162 (73-393) U/L HCG, Quant (0-6) mIU/mL Urine Color Yellow (YELLOW) Urine Appearance Clear (CLEAR) Urine pH 7.5 (5.0-9.0) Ur Specific [place] 1.015 (1.005-1.030) Urine Protein Negative (NEGATIVE) Urine Glucose (UA) Negative (NEGATIVE) Urine Ketones Negative (NEGATIVE) Urine Occult Blood Negative (NEGATIVE) Urine Nitrite Negative (NEGATIVE) Urine Bilirubin Negative (NEGATIVE) Urine Urobilinogen 0.2 (0.2-1.0) mg/dL Ur Leukocyte Esterase Small H (NEGATIVE) Urine RBC 0-5 /HPF Urine WBC 5-10 H (0-5/HPF) /HPF Ur Epithelial Cells Few (NOT SEEN) /HPF Urine Bacteria Few (0-FEW/HPF) /HPF 08/19/20 Range/Units 16:31 WBC (5.0-10.0) 10^3/uL RBC (4.2-5.4) 10^6/uL Hgb (12.0-16.0) g/dL Hct (37.0-47.0) % MCV (80-100) fL MCH (27.0-34.0) pg MCHC (33.0-35.0) g/dL Plt Count (150-450) 10^3/uL Neut % (Auto) (42.2-75.2) % Lymph % (Auto) (20.5-50.1) % [place] % (Auto) (2-8) % Eos % (Auto) (1.0-3.0) % Baso % (Auto) (0.0-1.0) % Sodium (136-145) mmol/L Potassium (3.5-5.1) mmol/L Chloride (98-107) mmol/L Carbon Dioxide (21-32) mmol/L Anion Gap (7-13) mEq/L BUN (7-18) mg/dL Creatinine (0.55-1.02) mg/dL Est Cr Clr Drug Dosing mL/min Estimated GFR (MDRD) BUN/Creatinine Ratio (No establ ref range) Glucose (74-99) mg/dL Calcium (8.5-10.1) mg/dL Total Bilirubin (0.2-1.0) mg/dL AST (15-37) U/L ALT (14-59) U/L Alkaline Phosphatase (46-116) U/L Total Protein (6.4-8.2) g/dL Albumin (3.4-5.0) g/dL Globulin Albumin/Globulin Ratio Amylase (25-115) U/L Lipase (73-393) U/L HCG, Quant [id number] H (0-6) mIU/mL Urine Color (YELLOW) Urine Appearance (CLEAR) Urine pH (5.0-9.0) Ur Specific [place] (1.005-1.030) Urine Protein (NEGATIVE) Urine Glucose (UA) (NEGATIVE) Urine Ketones (NEGATIVE) Urine Occult Blood (NEGATIVE) Urine Nitrite (NEGATIVE) Urine Bilirubin (NEGATIVE) Urine Urobilinogen (0.2-1.0) mg/dL Ur Leukocyte Esterase (NEGATIVE) Urine RBC /HPF Urine WBC (0-5/HPF) /HPF Ur Epithelial Cells (NOT SEEN) /HPF Urine Bacteria (0-FEW/HPF) /HPF - Radiology Interpretation Free Text/Narrative:: OB US: single IUP, no ectopic, see Rad. report. Departure - Departure Time of Disposition: 18:26 Disposition: Home, Self-Care 01 Condition: Good Clinical Impression: Abdominal pain during in first trimester - Discharge Information *PRESCRIPTION DRUG MONITORING PROGRAM REVIEWED*: Not Applicable *COPY OF PRESCRIPTION DRUG MONITORING REPORT IN PATIENT FELIX: Not Applicable Instructions: Abdominal Pain During , Wsta-cj-Ncis Forms: ED Department Discharge Additional Instructions: Rx: Reglan 10mg Follow up in clinic and for OB ultrasound as planned. Sepsis Event Note (ED) - Evaluation Sepsis Screening Result: No Definite Risk - Focused Exam Vital Signs: Vital Signs Temp Pulse Resp BP Pulse Ox 08/19/20 16:09 98.2 F 94 18 128/61 99 - My Orders Last 24 Hours: My Active Orders 08/19/20 16:05 CULTURE URINE [RM] Stat 08/19/20 17:13 OB Transvaginal [US] Stat 08/19/20 18:25 ABO/RH TYPE [BBK] Stat - Assessment/Plan Last 24 Hours: My Active Orders 08/19/20 16:05 CULTURE URINE [RM] Stat 08/19/20 17:13 OB Transvaginal [US] Stat 08/19/20 18:25 ABO/RH TYPE [BBK] Stat
[2020-08-19 16:59] LABS: ANION GAP 11.8 mEq/L (7-13); CHLORIDE,CL 102 mmol/L (98-107); SODIUM,NA 139 mmol/L (136-145)
--- NOTE | 2020-08-19 18:51 | US ---
PROCEDURE INFORMATION: Exam: US , Transvaginal Exam date and time: 08/19/2020 6:01 PM Age: 25 years old Clinical indication: complicated by abdominal or pelvic pain; Left lower quadrant; First trimester; Gestational age or lmp: 6 wks, 0 days; ; Patient HX: PT unsure of lmp; Additional info: Llq abdominal/pelvic pain @ 7wks gest, R/O ectopic TECHNIQUE: Imaging protocol: Real-time transvaginal obstetrical ultrasound of the maternal pelvis and a first trimester with image documentation. Transvaginal imaging was used for better evaluation of the fetus, adnexa, and/or cervix. COMPARISON: No relevant prior studies available. FINDINGS: Gestation: A gestational sac and yolk sac are identified within the uterus. Mean gestational sac diameter estimates the gestational age to be 7 weeks 4 days. cardiac activity cannot be confirmed, however, this could be due to early gestation. IMPRESSION: 1. Intrauterine is identified with gestational sac estimated gestational age to be 7 weeks 4 days. Small pole is identified, however, no cardiac activity confirmed. Correlation with serial beta HCG level suggested. Follow-up imaging may be useful as clinically indicated.
== END 2020-08-19 18:35 | disposition home or self-care (01) ==
LOC: DL.ED 15:59
DX: O26.891 Other specified pregnancy related conditions, first trimester (principal); R10.32 Left lower quadrant pain; Z91.030 Bee allergy status; Z3A.01 Less than 8 weeks gestation of pregnancy
CPT/HCPCS: 36415; 76817; 80053; 81001; 82150; 83690; 84702; 85025; 86900; 86901; 87086; 99284-25

== ENCOUNTER 2020-09-08 20:14 | Emergency (ER) | payer MEDICAID ==
[2020-09-08] MEDS ORDERED: Ibuprofen 400 MG Tab PO ONE (20:37)
[2020-09-08 20:38] VITALS: BP 120/63; PULSE 93
--- NOTE | 2020-09-08 20:41 | EDM.PDOC ---
ED HPI GENERAL MEDICAL PROBLEM - General Chief Complaint: Headache Stated Complaint: MIGRAINE/9 WKS Time Seen by Provider: 09/08/20 20:33 Source of Information: Reports: Patient History Limitations: Reports: No Limitations - History of Present Illness INITIAL COMMENTS - FREE TEXT/NARRATIVE: h/o migraines been taking tylenol all day and not helping. also on suboxone. be en nauseous but not taken her reglan yet. discussed with pt re and pain meds for migraines - Related Data Allergies Allergy/AdvReac Type Severity Reaction Status Date / Time bee venom protein (honey bee) Allergy Swelling Verified 09/08/20 20:24 bee Allergy Swelling Uncoded 09/08/20 20:24 Home Meds: Home Meds Acetaminophen [Tylenol Extra Strength] 500 mg PO DAILY 08/19/20 [History] Vit No.78/Iron/Fa [Prenatabs FA] 1 tab PO DAILY 08/19/20 [History] Buprenorphine HCl 2 mg PO DAILY 09/08/20 [History] Metoclopramide HCl 10 mg PO ASDIRECTED PRN 09/08/20 [History] Past Medical History Cardiovascular History: Reports: None Respiratory History: Reports: None Gastrointestinal History: Reports: Other (See Below) Other Gastrointestinal History: umbilical hernia Genitourinary History: Reports: UTI, Recurrent INSULATION PROFESSIONAL History: Reports: , Spontaneous Other INSULATION PROFESSIONAL History: 11 weeks per pt. report Musculoskeletal History: Reports: None Neurological History: Reports: Migraines Psychiatric History: Reports: Anxiety Endocrine/Metabolic History: Reports: None Hematologic History: Reports: None Immunologic History: Reports: None Oncologic (Cancer) History: Reports: None Dermatologic History: Reports: None - Infectious Disease History Infectious Disease History: Reports: Chicken Pox, Shingles - Past Surgical History Head Surgeries/Procedures: Reports: None HEENT Surgical History: Reports: Myringotomy w Tube(s), Tonsillectomy Social & Family History - Family History Family Medical History: No Pertinent Family History - Caffeine Use Caffeine Use: Reports: None - Living Situation & Occupation Living situation: Reports: with Family ED ROS GENERAL - Review of Systems Review Of Systems: Comprehensive ROS is negative, except as noted in HPI. - Physical Exam Exam: See Below Exam Limited By: No Limitations General Appearance: Alert, WD/WN, Mild Distress, Other (discomfort) Eye Exam: Bilateral Eye: PERRL (pupils ER @ 4mm) Ears: Hearing Grossly Normal Throat/Mouth: Normal Voice, No Airway Compromise Head Exam: Atraumatic Neck: Non-Tender, Full Range of Motion Respiratory/Chest: No Respiratory Distress Cardiovascular: Regular Rate, Rhythm GI/Abdominal: Soft, Non-Tender (Female) Exam: Deferred Rectal (Female) Exam: Deferred Neuro Exam (Abbreviated): Alert, Oriented, Normal Cognition, Normal Gait, No Motor/Sensory Deficits Psychiatric: Tearful Skin Exam: Warm, Dry, Ecchymosis Course - Orders/Labs/Meds Orders: Active Orders 24 hr Category Date Time Status Ibuprofen [Motrin] Med 09/08/20 20:37 Once 400 mg PO ONETIME ONE Departure - Departure Time of Disposition: 20:40 Disposition: Home, Self-Care 01 Condition: Good Clinical Impression: Migraine - Discharge Information Additional Instructions: 1) rest as much as possible 2) avoid loud noise and bright lights 3) follow up at clinic Thursday about meds for migraine during . - My Orders Last 24 Hours: My Active Orders 09/08/20 20:37 Ibuprofen [Motrin] 400 mg PO ONETIME ONE - Assessment/Plan Last 24 Hours: My Active Orders 09/08/20 20:37 Ibuprofen [Motrin] 400 mg PO ONETIME ONE
== END 2020-09-08 20:55 | disposition home or self-care (01) ==
LOC: DL.ED 20:14
DX: O99.351 Diseases of the nervous system complicating pregnancy, first trimester (principal); G43.909 Migraine, unspecified, not intractable, without status migrainosus; Z91.030 Bee allergy status; Z3A.09 9 weeks gestation of pregnancy
CPT/HCPCS: 99283; A9270

== ENCOUNTER 2020-09-21 13:14 | Emergency (ER) | payer MEDICAID ==
[2020-09-21 13:11] VITALS: BP 123/77; PULSE 93
[2020-09-21] MEDS ORDERED: traMADol 50 MG Tab PO ONE (13:25)
[2020-09-21] MEDS ORDERED: fentaNYL 100 MCG/2 ML SDV IVPUSH ONE ×2 (14:00→14:39)
[2020-09-21] MEDS ORDERED: Sodium Chloride 0.9% 1,000 ML IV SCH (14:30)
--- NOTE | 2020-09-21 14:33 | US ---
EXAMINATION: OB 1st Tri Sgl 1st Gest SEX: Female AGE: 25 years CLINICAL HISTORY: 25-year-old "15 week 1 day" gravid female with vaginal bleeding, labor and "miscarriage". Retained products of conception? Interpretation (emergency, limited, transabdominal sonogram): 1. Midline uterus with central endometrial echoes typical of blood and/or residual placenta. 2. No parts identified.
[2020-09-21] MEDS ORDERED: diphenhydrAMINE 50 MG/ML SDV IVPUSH ONE (14:39)
--- NOTE | 2020-09-21 14:40 | EDM.PDOC ---
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 pt was seen @ [facility] 09/19, US revealed no heart tones, inevitable . pt reports cramping began 09/19, vaginal bleeding with large clots began this am. pt reports pain 07/28. pt with hx of opiate addiction, currently on suboxone, which she took the last dose around noon today. reports taking ibuprofen @ 11am today with no relief. reports saturating 3 pads every 2 hours. EMS reports large clots being passed en route. pt unsure of blood type or Rh factor. , reports spontaneous 2-3 years ago which passed on its own without medical attention required. (Chelo Atkins) - Related Data Allergies Allergy/AdvReac Type Severity Reaction Status Date / Time bee venom protein (honey bee) Allergy Swelling Verified 09/08/20 20:24 bee Allergy Swelling Uncoded 09/08/20 20:24 Home Meds: Home Meds Acetaminophen [Tylenol Extra Strength] 500 mg PO DAILY 08/19/20 [History] Vit No.78/Iron/Fa [Prenatabs FA] 1 tab PO DAILY 08/19/20 [History] Buprenorphine HCl 2 mg PO DAILY 09/08/20 [History] Metoclopramide HCl 10 mg PO ASDIRECTED PRN 09/08/20 [History] Past Medical History HEENT History: Reports: None Cardiovascular History: Reports: None Respiratory History: Reports: None Gastrointestinal History: Reports: Other (See Below) Other Gastrointestinal History: umbilical hernia Genitourinary History: Reports: UTI, Recurrent ASSISTANT PROFESSOR OF PHILOSOPHY History: Reports: , Spontaneous Other ASSISTANT PROFESSOR OF PHILOSOPHY History: 11 weeks per pt. report Musculoskeletal History: Reports: None Neurological History: Reports: Migraines Psychiatric History: Reports: Addiction, Anxiety Endocrine/Metabolic History: Reports: None Hematologic History: Reports: None Immunologic History: Reports: None Oncologic (Cancer) History: Reports: None Dermatologic History: Reports: None - Infectious Disease History Infectious Disease History: Reports: Chicken Pox, Shingles - Past Surgical History Head Surgeries/Procedures: Reports: None HEENT Surgical History: Reports: Myringotomy w Tube(s), Tonsillectomy GI Surgical History: Reports: Hernia Repair/Other Female Surgical History: Reports: None Neurological Surgical History: Reports: None Musculoskeletal Surgical History: Reports: None Oncologic Surgical History: Reports: None Social & Family History - Family History Family Medical History: No Pertinent Family History - Tobacco Use Tobacco Use Status *Q: Current Every Day Tobacco User Years of Tobacco use: 3 Packs/Tins Daily: 1 - Caffeine Use Caffeine Use: Reports: None - Recreational Drug Use Recreational Drug Use: No - Living Situation & Occupation Living situation: Reports: with Family ED ROS GENERAL - Review of Systems Review Of Systems: Comprehensive ROS is negative, except as noted in HPI. ED EXAM - Physical Exam Exam: See Below Exam Limited By: No Limitations General Appearance: Alert, WD/WN, Severe Distress Eye Exam: Bilateral Eye: EOMI, Normal Inspection Ears: Normal External Exam, Hearing Grossly Normal Nose: Normal Inspection, No Blood Throat/Mouth: Normal Inspection, Normal Voice, No Airway Compromise Head: Atraumatic, Normocephalic Neck: Normal Inspection, Supple, Non-Tender, Full Range of Motion Respiratory/Chest: No Respiratory Distress, Lungs Clear, Normal Breath Sounds, Chest Non-Tender Cardiovascular: Normal Peripheral Pulses, Regular Rate, Rhythm, No Edema GI/Abdominal Exam: Rigid, Tender, Other (assessment limited by severe pain and tenderness with scant touch) Rectal Exam: Deferred (Female) Exam: Vaginal Bleeding Heart Tones: Not [place] Movement: Not Appreciated Back Exam: Normal Inspection, Full Range of Motion Extremities: Normal Inspection, Normal Range of Motion, Non-Tender, No Pedal Edema Neurological: Alert, Oriented, Normal Cognition, Normal Gait Psychiatric: Normal Affect, Normal Mood, Tearful Skin Exam: Warm, Dry, Intact, Normal Color, No Rash Lymphatic: No Adenopathy Course - Vital Signs Last Recorded V/S: Last Vital Signs Temp 98.4 F 09/21/20 13:10 Pulse 93 09/21/20 13:10 Resp 20 09/21/20 13:10 BP 123/77 09/21/20 13:10 Pulse Ox 98 09/21/20 13:10 - Orders/Labs/Meds Labs: Laboratory Tests 09/21/20 09/21/20 09/21/20 Range/Units 13:26 13:26 14:14 WBC 13.2 H (5.0-10.0) 10^3/uL RBC 3.98 L (4.2-5.4) 10^6/uL Hgb 12.9 (12.0-16.0) g/dL Hct 36.4 L (37.0-47.0) % MCV 91.5 (80-100) fL MCH 32.4 (27.0-34.0) pg MCHC 35.4 H (33.0-35.0) g/dL Plt Count 301 (150-450) 10^3/uL Neut % (Auto) 68.2 (42.2-75.2) % Lymph % (Auto) 21.1 (20.5-50.1) % [place] % (Auto) 6.6 (2-8) % Eos % (Auto) 3.9 H (1.0-3.0) % Baso % (Auto) 0.2 (0.0-1.0) % SARS CoV-2 RNA Rapid JEMMA Negative (NEGATIVE) Blood Type O POSITIVE Gel Antibody Screen Negative Meds: Medications Discontinued Medications Generic Name Dose Route Start Last Admin Trade Name Giovanniq PRN Reason Stop Dose Admin Diphenhydramine HCl 50 mg 09/21/20 14:39 09/21/20 14:52 Benadryl IVPUSH 09/21/20 14:40 50 mg ONETIME ONE Administration Fentanyl 100 mcg 09/21/20 14:00 09/21/20 14:07 Sublimaze IVPUSH 09/21/20 14:01 100 mcg ONETIME ONE Administration Fentanyl 100 mcg 09/21/20 14:39 09/21/20 14:52 Sublimaze IVPUSH 09/21/20 14:40 100 mcg ONETIME ONE Administration Sodium Chloride 1,000 mls @ 100 mls/hr 09/21/20 14:30 09/21/20 14:46 Normal Saline IV 100 mls/hr ASDIRECTED ELIANA Administration Tramadol HCl 100 mg 09/21/20 13:25 09/21/20 13:31 Ultram PO 12/04/20 13:26 100 mg ONETIME ONE Administration - Re-Assessments/Exams Free Text/Narrative Re-Assessment/Exam: 09/21/20 14:50 I personally performed or re-performed the physical examination and medical decision making. I have verified all student documentation or findings, including history, physical exam and/or medical decision making. (Earl Rios) Departure - Departure Time of Disposition: 14:52 Condition: Fair - Discharge Information *PRESCRIPTION DRUG MONITORING PROGRAM REVIEWED*: No *COPY OF PRESCRIPTION DRUG MONITORING REPORT IN PATIENT FELIX: No - Departure Disposition: DC/Tfer to [facility] Clinical Impression: Incomplete - Discharge Information Forms: ED Department Discharge Sepsis Event Note (ED) - Evaluation Sepsis Screening Result: No Definite Risk - Focused Exam Vital Signs: Vital Signs Temp Pulse Resp BP Pulse Ox 09/21/20 13:10 98.4 F 93 20 123/77 98
== END 2020-09-21 15:01 ==
LOC: DL.ED 13:14
DX: O03.4 Incomplete spontaneous abortion without complication (principal); F17.210 Nicotine dependence, cigarettes, uncomplicated; Z91.030 Bee allergy status; Z79.899 Other long term (current) drug therapy
CPT/HCPCS: 36415; 76801; 85025; 86850; 86900; 86901; 87635; 96374; 96375; 96376; 99285; A9270; J1200; J3010; J7030; U0002

== ENCOUNTER 2021-03-25 22:09 | Emergency (ER) | payer MEDICAID ==
[2021-03-26 00:39] VITALS: BP 127/82; PULSE 85
[2021-03-26] MEDS ORDERED: Amoxicillin/Clavulanate K 875-125 MG Tab PO ONE (01:28)
--- NOTE | 2021-03-26 01:28 | EDM.PDOC ---
ED HPI GENERAL MEDICAL PROBLEM - General Chief Complaint: Genitourinary Problem Stated Complaint: SORES PRIVATE AREA PAIN, BOIL Time Seen by Provider: 03/26/21 01:00 Source of Information: Reports: Patient, RN, RN Notes Reviewed History Limitations: Reports: No Limitations - History of Present Illness INITIAL COMMENTS - FREE TEXT/NARRATIVE: Tami is a 25 y/o female who presents to the ED via personal vehicle with complaints of redness, swelling, and pain to her right groin. The patient reports first noting a raised lesion two days ago and reports it has progressively worsened in that time. She denies fever, shaking chills, palpitations, nausea, vomiting, or diarrhea. She denies vaginal discharge or odor; she is currently on her menses. The patient reports she has taken one dose of ibuprofen and has been applying warm packs to the area, neither of which has offered her relief of symptoms. Treatments [employer]ENDENT: Reports: Acetaminophen Groin Pain Score (Numeric/FACES): 8 - Related Data Allergies Allergy/AdvReac Type Severity Reaction Status Date / Time bee venom protein (honey bee) Allergy Swelling Verified 09/08/20 20:24 bee Allergy Swelling Uncoded 09/08/20 20:24 Home Meds: Home Meds Acetaminophen [Tylenol Extra Strength] 500 mg PO DAILY 08/19/20 [History] Vit No.78/Iron/Fa [Prenatabs FA] 1 tab PO DAILY 08/19/20 [History] Buprenorphine HCl 2 mg PO DAILY 09/08/20 [History] Metoclopramide HCl 10 mg PO ASDIRECTED PRN 09/08/20 [History] Past Medical History Cardiovascular History: Reports: None Respiratory History: Reports: None Gastrointestinal History: Reports: Other (See Below) Other Gastrointestinal History: umbilical hernia Genitourinary History: Reports: UTI, Recurrent [employer] History: Reports: , Spontaneous 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 Musculoskeletal History: Reports: None Neurological History: Reports: Migraines Psychiatric History: Reports: Addiction, Anxiety Endocrine/Metabolic History: Reports: None Hematologic History: Reports: None Immunologic History: Reports: None Oncologic (Cancer) History: Reports: None Dermatologic History: Reports: None - Infectious Disease History Infectious Disease History: Reports: Chicken Pox, Shingles - Past Surgical History Head Surgeries/Procedures: Reports: None HEENT Surgical History: Reports: Myringotomy w Tube(s), Tonsillectomy GI Surgical History: Reports: Hernia Repair/Other Female Surgical History: Reports: None Neurological Surgical History: Reports: None Musculoskeletal Surgical History: Reports: None Oncologic Surgical History: Reports: None Social & Family History - Family History Family Medical History: No Pertinent Family History - Tobacco Use Tobacco Use Status *Q: Current Every Day Tobacco User Years of Tobacco use: 8 Packs/Tins Daily: 0.7 - Caffeine Use Caffeine Use: Reports: Soda - Recreational Drug Use Recreational Drug Use: No - Living Situation & Occupation Living situation: Reports: with Family ED ROS GENERAL - Review of Systems Review Of Systems: Comprehensive ROS is negative, except as noted in HPI. ED EXAM, SKIN/RASH Exam: See Below Exam Limited By: No Limitations General Appearance: Alert, No Apparent Distress Throat/Mouth: Normal Inspection, Normal Oropharynx, Normal Voice, No Airway Compromise Head: Atraumatic, Normocephalic Respiratory/Chest: No Respiratory Distress, Lungs Clear, Normal Breath Sounds, No Accessory Muscle Use, Chest Non-Tender Cardiovascular: Normal Peripheral Pulses, Regular Rate, Rhythm, No Edema, No Gallop, No JVD, No Murmur, No Rub GI/Abdominal: Normal Bowel Sounds, Soft, Non-Tender, No Distention, No Mass, Pelvis Stable (Female) Exam: Vaginal Bleeding (Patient states she is on her menses), Other (Erythematous, raised, painful non-open lesion to right anterior groin) Back Exam: Normal Inspection, Full Range of Motion. No: CVA Tenderness (L), CVA Tenderness (R) Extremities: Normal Inspection, Normal Range of Motion, Non-Tender, No Pedal Edema, Normal Capillary Refill Neurological: Alert, Oriented, CN II-XII Intact, Normal Cognition, Normal Gait, No Motor/Sensory Deficits Psychiatric: Normal Affect, Normal Mood Skin: Warm, Dry, Intact, Erythema, Increased Warmth, Wound/Incision (See above). No: Ecchymosis, Mottled, Pallor, Petechiae Location, Skin: Groin Characteristics: Papular, Erythematous Associated features: Warmth, Tenderness, Swelling, Inflammation. No: Induration, Crusting, Weeping Course - Vital Signs Last Recorded V/S: Last Vital Signs Temp 96.7 F L 03/26/21 00:06 Pulse 85 03/26/21 00:06 Resp 16 03/26/21 00:06 BP 127/82 03/26/21 00:06 Pulse Ox 94 L 03/26/21 00:06 - Orders/Labs/Meds Meds: Medications Discontinued Medications Generic Name Dose Route Start Last Admin Trade Name Demarco PRN Reason Stop Dose Admin Amoxicillin/Clavulanate Potassium 1 tab 03/26/21 01:28 03/26/21 01:37 Amoxicillin/Clavulanate K 875-125 Mg Tab PO 03/26/21 01:29 1 tab ONETIME ONE Administration - Re-Assessments/Exams Free Text/Narrative Re-Assessment/Exam: 03/26/21 Findings of examination reviewed with patient. No palpable abscess appreciated; will treat infected ingrown hair with Augmentin. Red flag signs and symptoms which would warrant reevaluation discussed. Patient verbalized understanding and agreement with the plan of care. Departure - Departure Time of Disposition: : Disposition: Home, Self-Care 01 Condition: Good Clinical Impression: Ingrown hair, Cellulitis of groin, right - Discharge Information *PRESCRIPTION DRUG MONITORING PROGRAM REVIEWED*: Not Applicable *COPY OF PRESCRIPTION DRUG MONITORING REPORT IN PATIENT FELIX: Not Applicable Instructions: Cellulitis, Adult, [id number], Ingrown Hair Forms: ED Department Discharge Additional Instructions: Rx: Augmentin DS 1.) Take all of your antibiotic until gone, even as symptoms improve. 2.) Drink plenty of water to stay hydrated. 3.) Follow up with primary care provider, or return to the emergency room, with fever, shaking chills, worsening or persistent symptoms with 48 hours of antibiotics. 4.) Apply ice to the affected area as pain and swelling persist 5.) You may take ibuprofen (Advil/Motrin) 400mg every six hours, as pain and swelling persists. You may also take acetaminophen (Tylenol) 650mg every six hours, as pain persists. You may stagger these medications so you are receiving a dose every three hours. Sepsis Event Note (ED) - Evaluation Sepsis Screening Result: No Definite Risk - Focused Exam Vital Signs: Vital Signs Temp Pulse Resp BP Pulse Ox 03/26/21 00:06 96.7 F L 85 16 127/82 94 L
== END 2021-03-26 01:39 | disposition home or self-care (01) ==
LOC: DL.ED 22:09
DX: L03.314 Cellulitis of groin (principal); L73.1 Pseudofolliculitis barbae; Z91.030 Bee allergy status; Z72.0 Tobacco use
CPT/HCPCS: 99283; A9270-GY

== ENCOUNTER 2021-12-10 21:15 | Emergency (ER) | payer BC, MEDICAID ==
[2021-12-10 22:56] LABS: ANION GAP 8.9 mEq/L (7-13); CHLORIDE,CL 103 mmol/L (98-107); SODIUM,NA 136 mmol/L (136-145)
[2021-12-10 23:52] VITALS: BP 125/97; PULSE 77
[2021-12-12 12:47] LABS: C.TRACHOMATIS BY TMA Negative (Negative); N.GONORRHOEAE BY TMA Negative (Negative)
== END 2021-12-10 23:56 | disposition home or self-care (01) ==
LOC: DL.ED 21:15
DX: N76.0 Acute vaginitis (principal); B96.89 Other specified bacterial agents as the cause of diseases classified elsewhere; Z88.0 Allergy status to penicillin; Z91.030 Bee allergy status; Z72.0 Tobacco use
CPT/HCPCS: 36415; 80053; 81001; 82150; 83605; 83690; 84703; 85025; 87491; 87591; 99283; 99284

== ENCOUNTER 2022-02-17 11:32 | Emergency (ER) | payer BC ==
[2022-02-17 12:29] VITALS: BP 135/71; PULSE 73
== END 2022-02-17 14:24 | disposition home or self-care (01) ==
LOC: DL.ED 11:32
DX: S06.0X1A Concussion with loss of consciousness of 30 minutes or less, initial encounter (principal); T71.193A Asphyxiation due to mechanical threat to breathing due to other causes, assault, initial encounter; M54.2 Cervicalgia; Z88.0 Allergy status to penicillin; Z91.030 Bee allergy status; W18.09XA Striking against other object with subsequent fall, initial encounter; Y04.0XXA Assault by unarmed brawl or fight, initial encounter
CPT/HCPCS: 99283; 99284

== ENCOUNTER 2022-03-17 16:27 | Emergency (ER) | payer BC ==
[2022-03-17 16:43] VITALS: BP 138/85; PULSE 81
== END 2022-03-17 17:07 | disposition home or self-care (01) ==
LOC: DL.ED 16:27
DX: S96.911A Strain of unspecified muscle and tendon at ankle and foot level, right foot, initial encounter (principal); F17.210 Nicotine dependence, cigarettes, uncomplicated; Z88.0 Allergy status to penicillin; Z91.030 Bee allergy status; Z88.1 Allergy status to other antibiotic agents; Z79.899 Other long term (current) drug therapy; W22.8XXA Striking against or struck by other objects, initial encounter
CPT/HCPCS: 73660-T9; 99283; 99283-25

== ENCOUNTER 2023-02-17 21:27 | Emergency (ER) | payer BC ==
[2023-02-17 21:51] VITALS: BP 138/98; PULSE 93
[2023-02-17] MEDS ORDERED: Clindamycin HCl 150 MG Cap PO ONE (22:28)
[2023-02-17] MEDS ORDERED: Sulfamethoxazole/Trimethoprim 800-160 MG Tab PO ONE (22:29)
[2023-02-17 22:31] LABS: ANION GAP 11.6 mEq/L (7-13); CHLORIDE,CL 101 mmol/L (98-107); SODIUM,NA 138 mmol/L (136-145)
[2023-02-17 22:34] LABS: ESTIMATED GFR 126 mL/min (>=60)
== END 2023-02-17 22:55 | disposition home or self-care (01) ==
LOC: DL.ED 21:27
DX: L05.01 Pilonidal cyst with abscess (principal); N39.0 Urinary tract infection, site not specified; F17.210 Nicotine dependence, cigarettes, uncomplicated; Z88.0 Allergy status to penicillin; Z91.038 Other insect allergy status; Z79.899 Other long term (current) drug therapy
CPT/HCPCS: 36415; 80053; 81001; 81025; 83605; 84145; 85025; 86140; 87086; 99283; A9270

== ENCOUNTER 2023-03-20 00:09 | Emergency (ER) | payer BC ==
[2023-03-20] MEDS ORDERED: Acetaminophen 500 MG Tab PO ONE (00:26)
[2023-03-20] MEDS ORDERED: Sodium Chloride 0.9% 10 ML Syringe FLUSH PRN (00:26)
[2023-03-20] MEDS ORDERED: Ketorolac 30 MG/ML SDV IVPUSH ONE (00:26)
[2023-03-20] MEDS ORDERED: Sodium Chloride 0.9% 1,000 ML IV ONE (00:26)
[2023-03-20 00:57] LABS: APPEARANCE,URINE CLEAR (CLEAR); BILIRUBIN,URINE NEGATIVE (NEGATIVE); COLOR,URINE YELLOW (YELLOW); GLUCOSE,URINE NEGATIVE (NEGATIVE); KETONES,URINE NEGATIVE (NEGATIVE); LEUKOCYTE ESTERASE,URINE SMALL (NEGATIVE); NITRITE,URINE NEGATIVE (NEGATIVE); OCCULT BLOOD,URINE NEGATIVE (NEGATIVE); PH,URINE 6.5 (5.0-9.0); PROTEIN,URINE NEGATIVE (NEGATIVE); UROBILINOGEN,URINE 0.2 mg/dL (0.2-1.0)
[2023-03-20 01:19] LABS: AMORPHOUS SEDIMENT,URINE FEW /HPF (NOT SEEN); BACTERIA,URINE MODERATE /HPF (0-FEW/HPF); EPITHELIAL CELLS,URINE MODERATE /HPF (NOT SEEN); MUCUS,URINE FEW /LPF (NOT SEEN); RBC,URINE 0-5 /HPF (0-5)
[2023-03-20] MEDS ORDERED: Ciprofloxacin 500 MG Tab PO ONE (01:35)
[2023-03-20 01:58] VITALS: BP 107/81; PULSE 77
== END 2023-03-20 01:56 | disposition home or self-care (01) ==
LOC: DL.ED 00:09
DX: N30.01 Acute cystitis with hematuria (principal); B34.9 Viral infection, unspecified; Z88.0 Allergy status to penicillin; Z91.030 Bee allergy status
CPT/HCPCS: 81001; 87081; 87430; 87635; 87804; 96361; 96374; 99283; 99284; A9270; J1885; J7030; J3490; U0002

== ENCOUNTER 2025-01-30 20:18 | Emergency (ER) | payer BC ==
[2025-01-30] MEDS: Albuterol/Ipratropium 3.0-0.5 MG/3 ML Neb Soln NEB ONE (20:58)
[2025-01-30 21:29] VITALS: BP 128/79; PULSE 93
== END 2025-01-30 21:28 | disposition home or self-care (01) ==
LOC: DL.ED 20:18
DX: J40 Bronchitis, not specified as acute or chronic (principal); Z88.1 Allergy status to other antibiotic agents; Z88.8 Allergy status to other drugs, medicaments and biological substances; Z91.030 Bee allergy status; Z79.899 Other long term (current) drug therapy; Z86.16 Personal history of COVID-19
CPT/HCPCS: 71045; 99283; 99285; A9270-GY

== ENCOUNTER 2025-02-26 08:09 | Emergency (ER) | payer BC ==
[2025-02-26] MEDS: HYDROmorphone 0.5 MG/0.5 ML Syringe IVPUSH ONE ×2 (08:30→09:23)
[2025-02-26] MEDS: Sodium Chloride 0.9% 1,000 ML IV ONE (08:30)
[2025-02-26 08:33] LABS: BASOPHILS PERCENT AUTO 0.3 % (0.0-1.0); EOSINOPHILS PERCENT AUTO 4.3 % (1.0-3.0); HEMATOCRIT 44.4 % (37.0-47.0); LYMPHOCYTES PERCENT AUTO 24.7 % (20.5-50.1); MEAN CORPUSCULAR HEMOGLOBIN 30.5 pg (27.0-34.0); MEAN CORPUSCULAR HGB CONC 33.8 g/dL (33.0-35.0); MEAN CORPUSCULAR VOLUME 90.2 fL (80-100); MONOCYTES PERCENT AUTO 7.2 % (2-8); NEUTROPHILS PERCENT AUTO 63.5 % (42.2-75.2); PLATELET COUNT,PLT 384 10^3/uL (150-450); RED BLOOD CELL COUNT 4.92 10^6/uL (4.2-5.4); WHITE BLOOD CELL COUNT,WBC 10.5 10^3/uL (5.0-10.0)
[2025-02-26 08:50] LABS: ALBUMIN 3.9 g/dL (3.4-5.0); ANION GAP 10.8 mEq/L (7-13); BILIRUBIN TOTAL 0.2 mg/dL (0.2-1.0); BUN/CREATININE RATIO 14.5 (No establ ref range); CALCIUM 9.1 mg/dL (8.5-10.1); CREATININE 0.62 mg/dL (0.55-1.02); EST CRCL DRUG DOSING (CG) 136.27 mL/min; POTASSIUM,K 3.8 mmol/L (3.5-5.1); PROTEIN TOTAL,TP 7.8 g/dL (6.4-8.2)
[2025-02-26 08:51] LABS: APPEARANCE,URINE SLIGHTLY CLOUDY (CLEAR); BILIRUBIN,URINE NEGATIVE (NEGATIVE); COLOR,URINE YELLOW (YELLOW); GLUCOSE,URINE NEGATIVE (NEGATIVE); KETONES,URINE NEGATIVE (NEGATIVE); LEUKOCYTE ESTERASE,URINE SMALL (NEGATIVE); NITRITE,URINE NEGATIVE (NEGATIVE); OCCULT BLOOD,URINE NEGATIVE (NEGATIVE); PROTEIN,URINE NEGATIVE (NEGATIVE)
[2025-02-26 09:10] LABS: AMORPHOUS SEDIMENT,URINE FEW /HPF (NOT SEEN); BACTERIA,URINE FEW /HPF (0-FEW/HPF); EPITHELIAL CELLS,URINE MODERATE /HPF (NOT SEEN); MUCUS,URINE MODERATE /LPF (NOT SEEN); RBC,URINE 0-5 /HPF (0-5)
[2025-02-26] MEDS: Ketorolac 30 MG/ML SDV IVPUSH ONE (09:33)
[2025-02-26] MEDS: Take Home: Ondansetron 4 MG Tab.DIS, 5 Tab Pack PO ONE (09:53)
[2025-02-26] MEDS: Take Home: Acetaminophen/HYDROcodone 325-5 MG, 5 Tab Pack PO ONE (09:53)
[2025-02-26 10:18] VITALS: BP 132/87; PULSE 72
== END 2025-02-26 10:05 | disposition home or self-care (01) ==
LOC: DL.ED 08:09
DX: K80.20 Calculus of gallbladder without cholecystitis without obstruction (principal); Z88.0 Allergy status to penicillin; Z91.030 Bee allergy status; Z88.8 Allergy status to other drugs, medicaments and biological substances; Z79.899 Other long term (current) drug therapy; Z86.16 Personal history of COVID-19
CPT/HCPCS: 36415; 76705; 80053; 81001; 81025; 83690; 85025; 87086; 96361; 96374; 96375; 96376; 99283; 99284; A9270; J1885; J7030; Q0162

== ENCOUNTER 2025-09-17 15:26 | Emergency (ER) | payer BC ==
[2025-09-17] MEDS ORDERED: Sodium Chloride 0.9% 10 ML Syringe FLUSH PRN (15:56)
[2025-09-17 16:11] LABS: BASOPHILS PERCENT AUTO 0.2 % (0.0-1.0); EOSINOPHILS PERCENT AUTO 4.3 % (1.0-3.0); LYMPHOCYTES PERCENT AUTO 23.2 % (20.5-50.1); MONOCYTES PERCENT AUTO 4.9 % (2-8); NEUTROPHILS PERCENT AUTO 67.4 % (42.2-75.2); PLATELET COUNT,PLT 317 10^3/uL (150-450); RED BLOOD CELL COUNT 4.54 10^6/uL (4.2-5.4); WHITE BLOOD CELL COUNT,WBC 13.9 10^3/uL (5.0-10.0)
[2025-09-17 16:37] LABS: A/G RATIO 1.2; ALANINE AMINOTRANSFERASE,ALT 60 U/L (14-59); ASPARTATE AMNIOTRANSFERASE,AST 80 U/L (15-37); BILIRUBIN TOTAL 0.4 mg/dL (0.2-1.0); BLOOD UREA NITROGEN,BUN 11 mg/dL (7-18); CARBON DIOXIDE,CO2 30 mmol/L (21-32); CHLORIDE,CL 100 mmol/L (98-107); CREATININE 0.73 mg/dL (0.55-1.02); EST CRCL DRUG DOSING (CG) 110.58 mL/min; GLUCOSE RANDOM 112 mg/dL (70-99); LACTIC ACID 1.1 mmol/L (0.4-2.0); POTASSIUM,K 3.7 mmol/L (3.5-5.1); PROTEIN TOTAL,TP 7.4 g/dL (6.4-8.2); SODIUM,NA 137 mmol/L (136-145)
[2025-09-17 16:45] LABS: ESTIMATED GFR 114 mL/min (>=60)
[2025-09-17 17:31] LABS: APPEARANCE,URINE CLEAR (CLEAR); GLUCOSE,URINE NEGATIVE (NEGATIVE); OCCULT BLOOD,URINE NEGATIVE (NEGATIVE)
[2025-09-17 17:50] VITALS: BP 117/68; PULSE 74
== END 2025-09-17 17:37 | disposition home or self-care (01) ==
LOC: DL.ED 15:26
DX: K21.9 Gastro-esophageal reflux disease without esophagitis (principal); Z88.0 Allergy status to penicillin; Z91.030 Bee allergy status; Z79.899 Other long term (current) drug therapy; Z86.16 Personal history of COVID-19
CPT/HCPCS: 36415; 80053; 81003; 81025; 83605; 83690; 83735; 85025; 86140; 96374; 99283; 99284; J1308